=== PATIENT | female | born 1995 | race African-American/Black ===

== ENCOUNTER 2020-02-24 05:55 | Inpatient (IN) ==
[2020-02-24] MEDS ORDERED: ONDANSETRON 4 MG/2 ML VIAL IV PRN ×2 (06:29→21:27)
[2020-02-24 06:44] LABS: Apearance,Urine CLEAR (Clear); Bacteria,Urine Occasional /HPF (Few); Bilirubin,Urine Negative (Negative); Blood, Urine Negative (Negative); Glucose,Urine (UA) Negative (Negative); Ketones,Urine Negative (Negative); Mucus,Urine Occasional /LPF (Occasional); Nitrite,Urine Negative (Negative); Protein,Urine Negative; RBC,Urine 3 /HPF (0-4); Squamous Epithelial Cell,Urine Few /HPF (0-10); Urine Color Yellow (Yellow); Urine Specific Gravity 1.017 (1.001-1.035); WBC,Urine 1 /HPF (0-6)
[2020-02-24] MEDS ORDERED: AMPICILLIN INJ 2,000 MG in SODIUM CHLORIDE 0.9% 100 ML IV ONE ×2 (07:08→18:00)
[2020-02-24 07:10] LABS: Basophils # 0.1 10*3/uL (0.0-0.2); Basophils % 0.6 % (0.0-0.8); Eosinophils # 0.1 10*3/uL (0.0-0.87); Eosinophils % 0.9 % (0.00-10.9); Hematocrit 37.8 VOL% (35.7-47.0); Hemoglobin 11.6 GM/DL (12.0-16.0); Immature Granulocytes % 0.5 %; Immature Granulocytes Absolute 0.04 #; Lymphocytes # 2.1 10*3/uL (1.4-4.0); Lymphocytes % 24.3 % (21.3-54.2); Mean Corpuscular HGB Conc 30.7 GM/DL (32-36); Mean Corpuscular Volume 77.9 FL (87-102); Monocytes % 8.4 % (1.7-12.7); Neutrophils % 65.3 % (38.7-73.9); Platelet Count 186 T/CUMM (130-400); Red Blood Count 4.85 MC/CUMM (3.8-5.5); Red Cell Distribution Width 18.8 % (9.3-17.3); White Blood Count 8.7 T/CUMM (4-12)
[2020-02-24 07:22] LABS: Albumin 2.9 G/DL (3.4-5.0); Bilirubin,Total 0.7 MG/DL (0.2-1.0); Osmolality,Calculated 270.8 MOS/KG (273-304); Total Protein 7.6 G/DL (6.4-8.3)
[2020-02-24 08:21] LABS: Platelet Estimate Normal
[2020-02-24 08:22] LABS: Anisocytosis 2+; Giant Platelets Few; Polychromasia Slight
[2020-02-24] MEDS: LACTATED RINGERS 1,000 ML IV SCH ×3 (13:02→18:02)
[2020-02-24] MEDS: BUTORPHANOL 2 MG/ML VIAL IV PRN ×2 (15:47→18:58)
[2020-02-24] MEDS ORDERED: OXYTOCIN/LR 20 UNIT/1,000 ML BAG IV ONE ×2 (21:03→21:27)
[2020-02-24] MEDS ORDERED: LIDOCAINE 1% 50 ML VIAL ONE (21:18)
[2020-02-24] MEDS ORDERED: LANOLIN 50% CREAM 0.3 OZ TUBE TOP PRN (21:27)
[2020-02-24] MEDS ORDERED: oxyCODONE/ACETAMINOPHEN 5-325 MG TABLET PO PRN ×2 (21:27)
[2020-02-24] MEDS ORDERED: IBUPROFEN 800 MG TABLET PO PRN (21:27)
[2020-02-24] MEDS ORDERED: DIPH/TET/ACEL PERT BOOSTER VACCINE 0.5 ML VIAL IM ONE (21:27)
[2020-02-24] MEDS ORDERED: BISACODYL 10 MG SUPP RECTAL PRN (21:27)
[2020-02-24] MEDS ORDERED: RHO(D) IMMUNE GLOBULIN 300 MCG SYRINGE IM ONE (21:27)
[2020-02-24] MEDS ORDERED: MEASLES/MUMPS/RUBELLA VACCINE 0.5 ML VIAL SUBCUT ONE (21:27)
[2020-02-24] MEDS ORDERED: HYDROCORTISONE 2.5% RECTAL CREAM 30 GM TUBE TOP PRN (21:27)
[2020-02-24] MEDS ORDERED: WITCH HAZEL PADS 100/JAR TOP PRN (21:27)
[2020-02-24] MEDS ORDERED: BENZOCAINE 20%/MENTHOL 0.5% SPRAY 56 GM CAN TOP PRN (21:27)
[2020-02-24] MEDS ORDERED: ACETAMINOPHEN 325 MG TABLET PO PRN (21:27)
[2020-02-24 21:38] LABS: Cord Venous Blood PO2 28.8
[2020-02-24] MEDS ORDERED: AMPICILLIN INJ 1,000 MG in SODIUM CHLORIDE 0.9% 100 ML IV SCH (22:00)
[2020-02-25 06:17] LABS: Basophils % 0.3 % (0.0-0.8); Eosinophils % 0.2 % (0.00-10.9); Hematocrit 36.1 VOL% (35.7-47.0); Hemoglobin 10.8 GM/DL (12.0-16.0); Immature Granulocytes % 0.5 %; Immature Granulocytes Absolute 0.06 #; Lymphocytes # 1.8 10*3/uL (1.4-4.0); Lymphocytes % 13.5 % (21.3-54.2); Mean Corpuscular HGB Conc 29.9 GM/DL (32-36); Mean Corpuscular Volume 78.6 FL (87-102); Neutrophils % 77.5 % (38.7-73.9); Platelet Count 165 T/CUMM (130-400); Red Blood Count 4.59 MC/CUMM (3.8-5.5); Red Cell Distribution Width 18.7 % (9.3-17.3); White Blood Count 13.3 T/CUMM (4-12)
[2020-02-25] MEDS: DOCUSATE SODIUM 100 MG CAPSULE PO SCH ×2 (08:37→21:06)
[2020-02-26 07:47] VITALS: BP 106/66
== END 2020-02-26 12:45 | disposition home or self-care (01) | DRG 807 ==
LOC: N.LD 05:55 → N.OB 02-25 00:35
PROVIDERS: ADMIT Obstetrics & Gynecology; ATTEND Obstetrics & Gynecology

== ENCOUNTER 2021-09-27 05:32 | Inpatient (IN) ==
[2021-09-27] MEDS ORDERED: BUTORPHANOL 2 MG/ML VIAL IV PRN (05:40)
[2021-09-27] MEDS ORDERED: ONDANSETRON 4 MG/2 ML VIAL IV PRN (05:40)
[2021-09-27] MEDS ORDERED: OXYTOCIN/LR 20 UNIT/1,000 ML BAG IV SCH (06:00)
[2021-09-27] MEDS: LACTATED RINGERS 1,000 ML IV SCH ×2 (06:00→14:04)
[2021-09-27 06:14] LABS: Basophils % 0.4 % (0.0-0.8); Eosinophils # 0.1 10*3/uL (0.0-0.87); Eosinophils % 0.9 % (0.00-10.9); Hematocrit 38.2 VOL% (35.7-47.0); Hemoglobin 11.6 GM/DL (12.0-16.0); Immature Granulocytes % 0.7 %; Immature Granulocytes Absolute 0.05 #; Lymphocytes # 2.5 10*3/uL (1.4-4.0); Lymphocytes % 32.2 % (21.3-54.2); Mean Corpuscular HGB Conc 30.4 GM/DL (32-36); Mean Corpuscular Volume 75.2 FL (87-102); Monocytes % 6.7 % (1.7-12.7); Neutrophils % 59.1 % (38.7-73.9); Platelet Count 211 T/CUMM (130-400); Red Blood Count 5.08 MC/CUMM (3.8-5.5); Red Cell Distribution Width 20.6 % (9.3-17.3); White Blood Count 7.7 T/CUMM (4-12)
[2021-09-27 06:23] LABS: Bacteria,Urine Occasional /HPF (Few); Bilirubin,Urine Negative (Negative); Blood, Urine Negative (Negative); Glucose,Urine (UA) Negative (Negative); Ketones,Urine Negative (Negative); Mucus,Urine Few /LPF (Occasional); Nitrite,Urine Negative (Negative); Protein,Urine Negative; RBC,Urine <1 /HPF (0-4); Squamous Epithelial Cell,Urine Few /HPF (0-10); Urine Appearance CLEAR (Clear); Urine Color Yellow (Yellow); Urine Specific Gravity 1.021 (1.001-1.035)
[2021-09-27 06:34] LABS: Hypochromia 1+; Lymphocytes 33 % (20-55); Microcytosis 1+; Polychromasia Slight; Segmented Neutrophils 58 % (50-85); Total Cells Counted 100
[2021-09-27 06:35] LABS: Platelet Estimate Normal
[2021-09-27 06:47] LABS: Alanine Aminotransferase 13 U/L (13-56); Albumin 2.9 G/DL (3.4-5.0); Alkaline Phosphatase 316 U/L (45-117); Aspartate Amino Transferase 18 U/L (0-37); Bilirubin,Total < 0.39 MG/DL (0.20-1.00); Blood Urea Nitrogen 8 MG/DL (7-18); Calcium 9.4 MG/DL (8.5-10.1); Carbon Dioxide 21 MMOL/L (21-32); Estimated Glom Filtration Rate 184 ML/MIN; Glucose 87 MG/DL (74-106); Osmolality,Calculated 271.7 MOS/KG (273-304); Potassium 3.9 MMOL/L (3.5-5.1); Sodium 138 MMOL/L (136-145); Total Protein 7.8 G/DL (6.4-8.2)
[2021-09-27] MEDS ORDERED: TERBUTALINE 1 MG/1 ML VIAL SUBCUT ONE (08:20)
[2021-09-27] MEDS ORDERED: TERBUTALINE 1 MG/1 ML VIAL ONE (08:24)
[2021-09-27] MEDS: MEPERIDINE 50 MG/1 ML VIAL IV PRN ×2 (13:52→16:49)
[2021-09-27] MEDS ORDERED: miSOPROStoL 200 MCG TABLET ONE (18:01)
[2021-09-27] MEDS ORDERED: METHYLERGONOVINE 0.2 MG/1 ML AMP ONE (18:01)
[2021-09-27] MEDS ORDERED: ACETAMINOPHEN 325 MG TABLET PO PRN (18:32)
[2021-09-27] MEDS ORDERED: BENZOCAINE 20%/MENTHOL 0.5% SPRAY 56 GM CAN TOP PRN (18:32)
[2021-09-27] MEDS ORDERED: ACETAMINOPHEN/CODEINE 300-30 MG TABLET PO PRN ×2 (18:32)
[2021-09-27] MEDS ORDERED: BISACODYL 10 MG SUPP RECTAL PRN (18:32)
[2021-09-27] MEDS ORDERED: LANOLIN 50% CREAM 0.3 OZ TUBE TOP PRN (18:32)
[2021-09-27] MEDS ORDERED: WITCH HAZEL PADS 100/JAR TOP PRN (18:32)
[2021-09-27] MEDS ORDERED: DIPH/TET/ACEL PERT BOOSTER VACCINE 0.5 ML VIAL IM ONE (18:32)
[2021-09-27] MEDS ORDERED: HYDROCORTISONE 2.5% RECTAL CREAM 30 GM TUBE TOP PRN (18:32)
[2021-09-27] MEDS ORDERED: MEASLES/MUMPS/RUBELLA VACCINE 0.5 ML VIAL SUBCUT ONE (18:32)
[2021-09-27 18:42] LABS: Cord Venous Blood HCO3 22.3 MMOL/L; Cord Venous Blood PCO2 48.8 MMHG; Cord Venous Blood PO2 19.8 MMHG
[2021-09-27] MEDS: DOCUSATE SODIUM 100 MG CAPSULE PO SCH (21:58)
[2021-09-27] MEDS: IBUPROFEN 800 MG TABLET PO PRN (22:00)
[2021-09-28 05:40] LABS: Basophils % 0.3 % (0.0-0.8); Eosinophils # 0.1 10*3/uL (0.0-0.87); Eosinophils % 1.1 % (0.00-10.9); Hemoglobin 10.2 GM/DL (12.0-16.0); Immature Granulocytes % 0.6 %; Immature Granulocytes Absolute 0.07 #; Lymphocytes # 2.6 10*3/uL (1.4-4.0); Lymphocytes % 23.5 % (21.3-54.2); Mean Corpuscular Volume 75.9 FL (87-102); Monocytes % 6.8 % (1.7-12.7); Neutrophils % 67.7 % (38.7-73.9); Platelet Count 164 T/CUMM (130-400); Red Blood Count 4.48 MC/CUMM (3.8-5.5); Red Cell Distribution Width 20.3 % (9.3-17.3); White Blood Count 11.2 T/CUMM (4-12)
[2021-09-28] MEDS: DOCUSATE SODIUM 100 MG CAPSULE PO SCH ×2 (08:29→20:49)
[2021-09-28] MEDS: MULTIVITAMIN (PRENATAL) TABLET PO SCH (08:30)
[2021-09-28] MEDS: FERROUS SULFATE 325 MG TABLET PO SCH (08:30)
[2021-09-28] MEDS: IBUPROFEN 800 MG TABLET PO PRN (20:50)
[2021-09-29 07:09] VITALS: BP 101/54
[2021-09-29] MEDS: DOCUSATE SODIUM 100 MG CAPSULE PO SCH (09:27)
[2021-09-29] MEDS: FERROUS SULFATE 325 MG TABLET PO SCH (09:28)
[2021-09-29] MEDS: MULTIVITAMIN (PRENATAL) TABLET PO SCH (09:28)
== END 2021-09-29 13:23 | disposition home or self-care (01) | DRG 807 ==
LOC: N.LD 05:32 → N.OB 21:12
PROVIDERS: ADMIT Obstetrics & Gynecology; ATTEND Obstetrics & Gynecology